=== PATIENT | male | born 1975 | race Caucasian/White ===

== ENCOUNTER 2021-03-13 09:51 | Inpatient (IN) | payer BC, MEDICAID ==
[2021-03-13] MEDS ORDERED: LORazepam 2 MG/ML SDV IVPUSH ONE ×2 (09:54→10:59)
[2021-03-13] MEDS: Lactated Ringers 1,000 ML IV SCH ×2 (10:05→15:38)
[2021-03-13 10:53] LABS: ACETAMINOPHEN 0 ug/mL (10-30)
[2021-03-13] MEDS ORDERED: PHENobarbital Sodium 65 MG/ML SDV IVPUSH ONE (14:17)
[2021-03-13] MEDS: LORazepam 2 MG/ML SDV IVPUSH PRN ×3 (18:51→23:09)
[2021-03-13] MEDS ORDERED: LORazepam 2 MG/ML SDV IVPUSH PRN (20:44)
[2021-03-14] MEDS: Morphine 2 MG/ML SYRINGE IVPUSH PRN (00:57)
[2021-03-14] MEDS: Lactated Ringers 1,000 ML IV SCH ×2 (01:05→13:47)
[2021-03-14] MEDS: LORazepam 2 MG/ML SDV IVPUSH PRN ×3 (08:24→21:17)
[2021-03-14] MEDS: Enoxaparin 40 MG/0.4 ML Syringe SUBCUT SCH (08:26)
[2021-03-14] MEDS ORDERED: Enoxaparin 40 MG/0.4 ML Syringe SUBCUT SCH (09:00)
[2021-03-14] MEDS: chlordiazePOXIDE 25 MG Cap PO SCH ×2 (09:07→20:05)
[2021-03-15] MEDS: Morphine 2 MG/ML SYRINGE IVPUSH PRN ×2 (01:10→14:24)
[2021-03-15] MEDS: Enoxaparin 40 MG/0.4 ML Syringe SUBCUT SCH (08:01)
[2021-03-15] MEDS: chlordiazePOXIDE 25 MG Cap PO SCH ×2 (08:01→21:44)
[2021-03-15] MEDS: LORazepam 2 MG/ML SDV IVPUSH PRN ×5 (08:01→15:40)
[2021-03-15] MEDS: Gabapentin 100 MG Cap PO SCH ×3 (15:55→21:44)
[2021-03-15] MEDS: Acetaminophen 325 MG Tab PO PRN (15:57)
[2021-03-16] MEDS: chlordiazePOXIDE 25 MG Cap PO SCH (08:08)
[2021-03-16] MEDS: Enoxaparin 40 MG/0.4 ML Syringe SUBCUT SCH (08:08)
[2021-03-16] MEDS: Gabapentin 100 MG Cap PO SCH ×4 (08:08→20:32)
[2021-03-16] MEDS: Potassium Chloride 20 MEQ Tab.ER PO SCH ×3 (11:59→20:32)
[2021-03-16] MEDS: Nicotine 21 MG/24 Hr Patch TRDERM SCH (12:07)
[2021-03-16] MEDS: Acetaminophen 325 MG Tab PO PRN (18:16)
[2021-03-16] MEDS: chlordiazePOXIDE 10 MG Cap PO SCH (20:32)
[2021-03-17] MEDS: chlordiazePOXIDE 10 MG Cap PO SCH (09:21)
[2021-03-17] MEDS: Nicotine 21 MG/24 Hr Patch TRDERM SCH (09:21)
[2021-03-17] MEDS: Gabapentin 100 MG Cap PO SCH ×5 (09:21→20:29)
[2021-03-17] MEDS: Enoxaparin 40 MG/0.4 ML Syringe SUBCUT SCH (09:21)
[2021-03-17] MEDS ORDERED: Potassium Chloride 20 MEQ Tab.ER PO ONE (09:30)
[2021-03-17] MEDS ORDERED: Metoclopramide 10 MG/2 ML SDV IVPUSH ONE (15:50)
[2021-03-17] MEDS ORDERED: Ondansetron 4 MG/2 ML SDV IVPUSH PRN (16:53)
[2021-03-17] MEDS: LORazepam 2 MG/ML SDV IVPUSH PRN (17:25)
[2021-03-18] MEDS: Pantoprazole 40 MG Tab.CR PO SCH (06:03)
[2021-03-18] MEDS: Thiamine 100 MG Tab PO SCH (08:43)
[2021-03-18] MEDS: Nicotine 21 MG/24 Hr Patch TRDERM SCH (08:43)
[2021-03-18] MEDS: Gabapentin 100 MG Cap PO SCH (08:43)
[2021-03-18] MEDS: Enoxaparin 40 MG/0.4 ML Syringe SUBCUT SCH (08:44)
[2021-03-18] MEDS ORDERED: chlordiazePOXIDE 10 MG Cap PO SCH (09:00)
[2021-03-18] MEDS ORDERED: Sodium Chloride 0.9% 10 ML Syringe FLUSH ONE (10:16)
[2021-03-18] MEDS ORDERED: Iopamidol 755 Mg/ML 100 ML Bottle IVPUSH ONE (10:16)
[2021-03-18] MEDS ORDERED: Sodium Chloride 0.9% 100 ML IV SCH (10:30)
[2021-03-18] MEDS: Zinc Sulfate 220 MG Cap PO SCH (10:54)
[2021-03-18] MEDS ORDERED: Magnesium Sulfate/Water 2 GM in Premix Bag 1 BAG IV ONE (11:00)
[2021-03-18] MEDS ORDERED: Benzonatate 100 MG Cap PO PRN (17:29)
[2021-03-18] MEDS ORDERED: traZODone 50 MG Tab PO ONE (21:18)
[2021-03-19] MEDS ORDERED: Benzonatate 100 MG Cap PO ONE (00:15)
[2021-03-19] MEDS: Pantoprazole 40 MG Tab.CR PO SCH (05:22)
[2021-03-19 05:23] VITALS: PULSE 83
[2021-03-19] MEDS: Thiamine 100 MG Tab PO SCH (09:23)
[2021-03-19] MEDS: Enoxaparin 40 MG/0.4 ML Syringe SUBCUT SCH (09:23)
[2021-03-19] MEDS: Nicotine 21 MG/24 Hr Patch TRDERM SCH (09:23)
[2021-03-19] MEDS: Zinc Sulfate 220 MG Cap PO SCH (09:23)
[2021-03-19] MEDS ORDERED: REMDESIVIR 200 MG in Sodium Chloride 0.9% 250 ML IV ONE (09:30)
[2021-03-19] MEDS ORDERED: Enoxaparin 60 MG/0.6 ML Syringe SUBCUT ONE (11:00)
[2021-03-19] MEDS ORDERED: Gadobenate Dimeglumine 529 MG/ML 15 ML SDV IVPUSH ONE (11:06)
[2021-03-19] MEDS ORDERED: Sodium Chloride 0.9% 10 ML Syringe FLUSH SCH (11:15)
[2021-03-19 17:14] VITALS: BP 101/65
[2021-03-19] MEDS ORDERED: Enoxaparin 80 MG/0.8 ML Syringe SUBCUT SCH (21:00)
[2021-03-20] MEDS ORDERED: REMDESIVIR 100 MG in Sodium Chloride 0.9% 250 ML IV SCH (10:00)
== END 2021-03-19 16:15 | disposition home or self-care (01) | DRG 896 ==
LOC: JD.ED 09:51 → JD.ICU 13:20
PROVIDERS: ADMIT Family Medicine; ATTEND Family Medicine
PROC: 8E0ZXY6 Isolation (ICD-10-PCS; principal; 2021-03-18)
PROC: XW033E5 Introduction of Remdesivir Anti-infective into Peripheral Vein, Percutaneous Approach, New Technology Group 5 (ICD-10-PCS; 2021-03-19)
DX: F10.231 Alcohol dependence with withdrawal delirium (principal); U07.1 COVID-19; K86.3 Pseudocyst of pancreas; J98.11 Atelectasis; R56.9 Unspecified convulsions; E83.42 Hypomagnesemia; R79.89 Other specified abnormal findings of blood chemistry; K76.0 Fatty (change of) liver, not elsewhere classified; F17.210 Nicotine dependence, cigarettes, uncomplicated; H54.7 Unspecified visual loss
CPT/HCPCS: 36415; 70450; 70450-26; 70553; 70553-26; 71275; 71275-26; 76705; 76705-26; 80053; 80143; 80184; 80306; 80307; 81001; 82150; 82977; 83690; 83735; 84100; 84145; 84484; 85025; 85379; 85610; 86140; 93005; 93970; 93970-26; 97112-GP; 97116-GP; 97162-GP; 97530-GP; 99285; 99285-25; A9270-GY; A9577; J1650; J2060; J2270; J2405; J2560; J2765; J3411; J3475; J7050; J7120; Q9967; U0002